=== PATIENT | female | born 1995 | race Caucasian/White ===

== ENCOUNTER 2021-04-03 23:32 | Inpatient (IN) | payer BC ==
[~2021-04-03] VITALS: Ht 160 cm; Wt 97.5 kg
[2021-04-04] MEDS ORDERED: ZOLPIDEM TARTRATE 10 MG TABLET PO PRN (03:45)
[2021-04-04] MEDS ORDERED: OLANZapine 5 MG RAPDIS TABLET PO PRN (03:45)
[2021-04-04 05:41] VITALS: BP 114/75
[2021-04-04] MEDS: LORazepam 2 MG TABLET PO PRN (05:41)
[2021-04-04 08:42] VITALS: BP 108/74
[2021-04-04] MEDS ORDERED: LOPERAMIDE HCL 2 MG CAPSULE PO PRN (10:45)
[2021-04-04] MEDS ORDERED: MAG HYDROX/AL HYDROX/SIMETH ES 30 ML SUSPENSION UDCUP PO PRN (10:45)
[2021-04-04] MEDS ORDERED: GuaiFENesin/D-METHORPHAN [SUGAR-FREE] 200-20MG/10 ML SYRUP UDCUP PO PRN (10:45)
[2021-04-04] MEDS ORDERED: HydrOXYzine PAMOATE 50 MG CAPSULE PO PRN (10:45)
[2021-04-04] MEDS ORDERED: MAGNESIUM HYDROXIDE SUSPENSION 30 ML UDCUP PO PRN (10:45)
[2021-04-04] MEDS ORDERED: TUBERCULIN, PURIFIED PROTEIN DERIVATIVE 5 TU/0.1 ML SYRINGE ID ONE (10:45)
[2021-04-04] MEDS ORDERED: PROMETHAZINE HCL 25 MG TABLET PO PRN (10:45)
[2021-04-04 16:10] VITALS: BP 121/76
[2021-04-04] MEDS: THIAMINE 100 MG TABLET PO SCH (16:38)
[2021-04-04] MEDS: ACETAMINOPHEN 325 MG TABLET PO PRN (18:24)
[2021-04-04] MEDS: MELATONIN 5 MG TABLET PO SCH (20:19)
[2021-04-04] MEDS: ESCITALOPRAM OXALATE 20 MG TABLET PO SCH (20:36)
[2021-04-04] MEDS: ARIPiprazole 2 MG TABLET PO SCH (22:12)
[2021-04-05 04:17] VITALS: BP 118/73
[2021-04-05 08:21] VITALS: BP 117/76
[2021-04-05 08:26] LABS: BASOPHILS % (AUTO) 0.8 % (0.0-2.0); EOSINOPHILS % (AUTO) 4.7 % (1.0-6.0); HEMATOCRIT 38.7 % (36-46); HEMOGLOBIN 12.5 g/dL (12.0-16.0); LYMPHOCYTES # (AUTO) 2.6 K/uL (1.0-4.8); LYMPHOCYTES % (AUTO) 34.7 % (22.0-44.0); MEAN CORPUSCULAR HEMOGLOBIN 27.3 pg (26.0-34.0); MEAN CORPUSCULAR HGB CONC 32.3 G/dL (31.0-37.0); MEAN CORPUSCULAR VOLUME 85 fL (80-100); MONOCYTES # (AUTO) 0.4 K/uL (0.1-1.0); NEUTROPHILS % (AUTO) 53.8 % (40.0-70.0); PLATELET COUNT (AUTO) 325 K/uL (150-450); RED BLOOD CELL COUNT(AUTO) 4.58 MIL/uL (4.00-5.20); RED CELL DISTRIBUTION WIDTH 14.8 % (11.5-14.5)
[2021-04-05] MEDS: MULTIVITAMINS WITH MINERALS, THERAPEUTIC TABLET PO SCH (08:42)
[2021-04-05] MEDS: FOLIC ACID 1 MG TABLET PO SCH (08:42)
[2021-04-05] MEDS: OMEGA-3/DHA/EPA/FISH OIL 1,000 MG CAPSULE PO SCH (08:42)
[2021-04-05] MEDS: THIAMINE 100 MG TABLET PO SCH ×2 (08:42→16:41)
[2021-04-05 08:46] LABS: HEMOGLOBIN A1C 5.2 % (3.8-5.6)
[2021-04-05 08:58] LABS: ALANINE AMINOTRANSFERASE 18 U/L (12-78); ALBUMIN 3.6 g/dL (3.4-5.0); ALKALINE PHOSPHATASE 80 U/L (46-116); ANION GAP 10 mmol/L (8-16); ASPARTATE AMINOTRANSFERASE 12 U/L (15-37); BILIRUBIN,TOTAL 0.3 mg/dL (0.1-1.0); CALCIUM, TOTAL 9.2 mg/dL (8.8-10.5); CARBON DIOXIDE 27 mmol/L (22-29); CHLORIDE 105 mmol/L (98-107); CHOL/HDL RATIO 3.9 (3.9-5.7); CHOLESTEROL 179 mg/dL (131-200); FREE T4 (FREE THYROXINE) 0.72 ng/dL (0.76-1.46); GLOMERULAR FILTR. RATE CALC > 60 mL/min (>60); GLUCOSE,RANDOM 81 mg/dL (70-110); HCG,QUANTITATIVE < 1 mIU/mL (0-6); HDL CHOLESTEROL 46 mg/dL (40-60); LDL CHOL (CALC.) 112 mg/dL (0-130); POTASSIUM 3.8 mmol/L (3.5-5.1); SODIUM SERUM 142 mmol/L (136-145); THYROID STIMULATING HORMONE 0.51 uIU/mL (0.36-3.74); TOTAL PROTEIN, SERUM 7.2 g/dL (6.4-8.2); TRIGLYCERIDES 106 mg/dL (15-150); UREA NITROGEN, BLOOD 9 mg/dL (7-18)
[2021-04-05] MEDS ORDERED: FLUoxetine HCL 20 MG CAPSULE PO SCH (09:00)
[2021-04-05] MEDS ORDERED: OMEG-135 PO (14:41)
[2021-04-05] MEDS ORDERED: ARIP2TAB27 PO (14:41)
[2021-04-05] MEDS ORDERED: ESCI20TA87 PO (14:41)
[2021-04-05] MEDS ORDERED: MELA5TAB3 PO (14:41)
[2021-04-05 16:11] VITALS: BP 109/67
[2021-04-05] MEDS: LORazepam 2 MG TABLET PO PRN (16:46)
[2021-04-05] MEDS: MELATONIN 5 MG TABLET PO SCH (20:23)
[2021-04-05] MEDS: ESCITALOPRAM OXALATE 20 MG TABLET PO SCH (21:00)
[2021-04-05] MEDS: ARIPiprazole 2 MG TABLET PO SCH (21:00)
[2021-04-06 05:25] VITALS: BP 112/70
[2021-04-06] MEDS: ACETAMINOPHEN 325 MG TABLET PO PRN (05:25)
[2021-04-06 08:23] VITALS: BP 143/95
[2021-04-06] MEDS: THIAMINE 100 MG TABLET PO SCH (08:45)
[2021-04-06] MEDS: OMEGA-3/DHA/EPA/FISH OIL 1,000 MG CAPSULE PO SCH (08:45)
[2021-04-06] MEDS: FOLIC ACID 1 MG TABLET PO SCH (08:46)
[2021-04-06] MEDS: MULTIVITAMINS WITH MINERALS, THERAPEUTIC TABLET PO SCH (08:46)
== END 2021-04-06 13:17 | disposition home or self-care (01) | DRG 885 ==
LOC: B3A 04-04 03:25
PROVIDERS: ADMIT Psychiatry & Neurology Psychiatry; ATTEND Psychiatry & Neurology Psychiatry
DX: F33.9 Major depressive disorder, recurrent, unspecified (principal); T39.1X1A Poisoning by 4-Aminophenol derivatives, accidental (unintentional), initial encounter; T43.221A Poisoning by selective serotonin reuptake inhibitors, accidental (unintentional), initial encounter; Y92.89 Other specified places as the place of occurrence of the external cause; Z55.9 Problems related to education and literacy, unspecified; Z56.0 Unemployment, unspecified; Z65.3 Problems related to other legal circumstances; Z81.8 Family history of other mental and behavioral disorders; Z91.5 Personal history of self-harm
CPT/HCPCS: 80053; 80061; 83036; 84439; 84443; 84702; 85025; 86592; 99285; A9575